=== PATIENT | male | born 1950 | race Caucasian/White ===

== ENCOUNTER 2019-09-24 12:52 | Inpatient (IN) | payer MEDICARE, OTHER ==
[~2019-09-24] VITALS: Ht 180.3 cm; Wt 79.4 kg
[~2019-09-24 12:52] MED LIST: AEC81 PO; ALLO100T PO; CLON0.5T4 PO; FURO40SO PO; METF-444 PO; SIMV40TA59 PO; SPIR25TA6 PO; WARF-57 PO; WARF7.5T49 PO
[2019-09-24 13:42] LABS: BASOPHILS % (AUTO) 0.3 % (0.0-5.0); EOSINOPHILS % (AUTO) 1.9 % (0.0-8.0); HEMATOCRIT 24.5 % (42-54); LYMPHOCYTES % (AUTO) 18.6 % (21.0-51.0); MEAN CORPUSCULAR HEMOGLOBIN 37.4 pg (27.0-33.0); MEAN CORPUSCULAR HGB CONC 35.2 g/dL (32.0-36.0); MEAN CORPUSCULAR VOLUME 106.3 fL (79-99); MONOCYTES % (AUTO) 9.6 % (3.0-13.0); NEUTROPHILS % (AUTO) 69.6 % (40.0-77.0); NUCLEATED RED BLOOD CELLS 0.1 % (0.0-0.19); PLATELET COUNT (AUTO) 195 K/uL (130-400); RED CELL DISTRIBUTION WIDTH 17.9 % (11.0-15.5)
[2019-09-24] MEDS ORDERED: OXYMETAZOLINE HCL SPRAY 15 ML BOTTLE NS SCH (13:45)
[2019-09-24 13:49] LABS: POTASSIUM 5.1 mmol/L (3.5-5.1)
[2019-09-24 13:51] LABS: INR 1.15 (0.85-1.15); PARTIAL THROMBOPLASTIN TIME 30.2 SEC (26.3-35.5)
[2019-09-24] MEDS ORDERED: TORS20TA4 PO (20:33)
[2019-09-24] MEDS ORDERED: [UNRECOGNIZED DRUG - CODE] PO (20:33)
[2019-09-24] MEDS ORDERED: RIVA20TA PO (20:33)
[2019-09-24] MEDS ORDERED: POTA99TA21 PO (20:33)
[2019-09-24] MEDS ORDERED: CARV6.25 PO (20:33)
[2019-09-24] MEDS ORDERED: METF-444 PO (20:33)
[2019-09-24] MEDS ORDERED: MELA10TA2 PO (20:33)
[2019-09-24] MEDS ORDERED: OLME20TA22 PO (20:33)
[2019-09-24] MEDS ORDERED: CLON0.5T4 PO (20:33)
[2019-09-24] MEDS ORDERED: SPIR50TA5 PO (20:33)
[2019-09-24] MEDS ORDERED: ATOR20TA65 PO (20:38)
[2019-09-24] MEDS ORDERED: SODIUM CHLORIDE 0.9% 1000ML 1,000 ML IV SCH (21:54)
[2019-09-24] MEDS ORDERED: ACETAMINOPHEN 325 MG TAB PO PRN ×2 (22:00)
[2019-09-24] MEDS ORDERED: LACTULOSE 20 GM/30 ML UDCUP PO PRN (22:00)
[2019-09-24] MEDS ORDERED: HYDRALAZINE HCL 20 MG/ML VIAL IV PRN (22:00)
[2019-09-24] MEDS ORDERED: OXYMETAZOLINE HCL SPRAY 15 ML BOTTLE EN PRN (22:00)
[2019-09-24] MEDS ORDERED: ONDANSETRON HCL 4 MG/2 ML VIAL IV PRN (22:00)
[2019-09-24 22:24] LABS: % IRON SATURATION 42.6 % (30-44)
[2019-09-25 05:34] LABS: BASOPHILS % (AUTO) 0.7 % (0.0-5.0); EOSINOPHILS % (AUTO) 1.3 % (0.0-8.0); LYMPHOCYTES % (AUTO) 18.5 % (21.0-51.0); MEAN CORPUSCULAR HEMOGLOBIN 36.9 pg (27.0-33.0); MEAN CORPUSCULAR HGB CONC 34.8 g/dL (32.0-36.0); MEAN CORPUSCULAR VOLUME 105.8 fL (79-99); NEUTROPHILS % (AUTO) 69.5 % (40.0-77.0); PLATELET COUNT (AUTO) 193 K/uL (130-400); RED BLOOD CELL COUNT(AUTO) 2.27 MIL/uL (4.50-6.20); RED CELL DISTRIBUTION WIDTH 17.4 % (11.0-15.5)
[2019-09-25 05:51] LABS: CREATININE 1.3 mg/dL (0.5-1.5); POTASSIUM 4.6 mmol/L (3.5-5.1)
[2019-09-25 05:53] LABS: ALBUMIN 3.7 g/dL (3.5-5.0); BILIRUBIN,TOTAL 1.6 mg/dL (0.2-1.0); TOTAL PROTEIN, SERUM 7.4 g/dL (6.0-8.3)
[2019-09-25] MEDS ORDERED: TORSEMIDE 20 MG TAB PO SCH ×2 (09:00→09:15)
[2019-09-25] MEDS ORDERED: CLONAZEPAM 0.5 MG TABLET PO SCH (09:00)
[2019-09-25] MEDS ORDERED: CARVEDILOL 6.25 MG TABLET PO SCH (09:00)
[2019-09-25] MEDS ORDERED: LOSARTAN 50 MG TABLET PO SCH (09:00)
[2019-09-25] MEDS ORDERED: SPIRONOLACTONE 25 MG TAB PO SCH (09:00)
[2019-09-25] MEDS ORDERED: PANTOPRAZOLE 40 MG/VIAL IVP SCH (09:00)
[2019-09-25] MEDS ORDERED: CYANOCOBALAMIN (VITAMIN B-12) 1,000 MCG TABLET PO SCH (09:15)
[2019-09-25] MEDS ORDERED: EPOETIN ALFA 10,000 UNIT/ML VIAL SQ SCH (09:15)
[2019-09-25] MEDS ORDERED: THIAMINE HCL 100 MG TABLET PO SCH (09:15)
[2019-09-25 09:38] LABS: HEMATOCRIT 25.7 % (42-54)
[2019-09-25] MEDS ORDERED: METFORMIN HCL 500 MG TABLET ONE (10:19)
[2019-09-25] MEDS ORDERED: CLONAZEPAM 0.5 MG TABLET ONE (10:20)
[2019-09-25] MEDS ORDERED: THIAMINE HCL 100 MG TABLET ONE (10:22)
[2019-09-25] MEDS ORDERED: CARVEDILOL 6.25 MG TABLET PO ONE (10:26)
--- NOTE | 2019-09-25 11:13 | NUR ---
DCP: HOME met with pt who lives with his [place] [phone]. Pt repots he uses a cane prn, related to his gout and dizzy episodes from medication. Pt is able to complete ADLS, no in home care services. PCP is Michael Ulrich and he uses ail order rx. [place] Addendum: 09/25/19 at 1116 by JEFFREY PANG Amended: Links added.
[2019-09-25 14:47] LABS: HEMATOCRIT 24.3 % (42-54)
[2019-09-25] MEDS: ALLOPURINOL 100 MG TABLET PO SCH (17:00)
[2019-09-25] MEDS ORDERED: ATORVASTATIN CALCIUM 20 MG TABLET PO SCH (21:00)
[2019-09-25] MEDS ORDERED: ***HM***Melatonin 10 MG PO PRN (21:00)
[2019-09-25 21:20] LABS: HEMATOCRIT 24.2 % (42-54)
[2019-09-25] MEDS ORDERED: ATORVASTATIN CALCIUM 20 MG TABLET ONE (21:39)
[2019-09-25] MEDS ORDERED: SODIUM CHLORIDE 0.9% 1000ML 1,000 ML IV ONE (23:41)
[2019-09-26 06:15] LABS: HEMATOCRIT 25.1 % (42-54)
[2019-09-26] MEDS ORDERED: THIAMINE HCL 100 MG TABLET ONE (07:30)
[2019-09-26] MEDS ORDERED: SPIRONOLACTONE 25 MG TAB ONE ×2 (07:31→07:32)
[2019-09-26] MEDS ORDERED: METFORMIN HCL 500 MG TABLET ONE (07:32)
[2019-09-26] MEDS ORDERED: CARVEDILOL 6.25 MG TABLET PO ONE (07:32)
[2019-09-26] MEDS ORDERED: CLONAZEPAM 0.5 MG TABLET ONE (07:33)
[2019-09-26] MEDS: METFORMIN HCL 500 MG TABLET PO SCH ×2 (08:00→17:00)
[2019-09-26] MEDS ORDERED: SPIRONOLACTONE 25 MG TAB PO SCH (09:00)
[2019-09-26 11:00] VITALS: BP 116/61
[2019-09-26] MEDS: INSULIN HUMULIN R 100 UNIT/ML 3ML SQ SCH ×2 (11:30→16:30)
[2019-09-26] MEDS ORDERED: MUPIROCIN OINTMENT 22 GM TUBE TP SCH (12:15)
[2019-09-26] MEDS ORDERED: OXYMETAZOLINE HCL SPRAY 15 ML BOTTLE EN PRN (12:15)
[2019-09-26 14:47] LABS: HEMATOCRIT 25.9 % (42-54)
[2019-09-26 14:54] VITALS: BP 93/48
[2019-09-26] MEDS: ALLOPURINOL 100 MG TABLET PO SCH (17:00)
[2019-09-26] MEDS ORDERED: TORS20TA4 PO (17:11)
[2019-09-26] MEDS ORDERED: SPIR25TA PO (17:11)
[2019-09-26] MEDS ORDERED: MUPI22OI2 TP (17:11)
[2019-09-26] MEDS ORDERED: THIA100T91 PO (17:11)
[2019-09-26] MEDS ORDERED: OXYM30SP EN (17:11)
[2019-09-26 18:08] LABS: CREATININE 1.6 mg/dL (0.5-1.5); POTASSIUM 4.4 mmol/L (3.5-5.1)
[2019-09-27] MEDS ORDERED: RIVAROXABAN 20 MG TABLET PO SCH (17:00)
== END 2019-09-26 18:49 | disposition home or self-care (01) | DRG 151 ==
LOC: EDH 12:52 → EDHIP 18:00 → 2AH 09-26 10:49
PROVIDERS: ADMIT Internal Medicine; ATTEND Internal Medicine
DX: R04.0 Epistaxis (principal); D62 Acute posthemorrhagic anemia; I50.22 Chronic systolic (congestive) heart failure; A69.20 Lyme disease, unspecified; E87.1 Hypo-osmolality and hyponatremia; N17.9 Acute kidney failure, unspecified; A77.0 Spotted fever due to Rickettsia rickettsii; D53.9 Nutritional anemia, unspecified; E11.9 Type 2 diabetes mellitus without complications; I11.0 Hypertensive heart disease with heart failure; I48.91 Unspecified atrial fibrillation; M10.9 Gout, unspecified; I35.0 Nonrheumatic aortic (valve) stenosis; F10.10 Alcohol abuse, uncomplicated; E78.5 Hyperlipidemia, unspecified; Z79.01 Long term (current) use of anticoagulants; Z79.899 Other long term (current) drug therapy; Z95.0 Presence of cardiac pacemaker; Z95.3 Presence of xenogenic heart valve; T45.515A Adverse effect of anticoagulants, initial encounter
CPT/HCPCS: 36415; 80048; 80053; 82948; 83540; 83550; 84443; 84484; 85014; 85018; 85025; 85610; 85730; 86850; 86900; 86901; C9113; G0378; J0885; J7030